=== PATIENT | male | born 1995 | race Caucasian/White ===

== ENCOUNTER 2018-02-05 09:24 | Day surgery (SDC) | payer OTHER ==
[2018-02-05] MEDS ORDERED: MEPERIDINE 25 MG INJ IV (11:30)
[2018-02-05] MEDS ORDERED: PROCHLORPERAZINE 10 MG INJ IV (11:30)
[2018-02-05] MEDS ORDERED: HYDROmorphONE (0.2 MG/ML) 10ML SYG IV ×3 (11:30)
[2018-02-05] MEDS ORDERED: OXYCODONE/ACETAMINOPHEN (5/325) TAB PO (11:30)
[2018-02-05] MEDS ORDERED: DIPHENHYDRAMINE 50 MG INJ IV (11:30)
[2018-02-05] MEDS ORDERED: ONDANSETRON 4 MG INJ IV (11:30)
[2018-02-05] MEDS ORDERED: FENTAnyl 50 MCG/ML VIAL IV ×3 (11:30)
[2018-02-05] MEDS ORDERED: MIDAZOLAM 1 MG/ML 2 ML INJ (11:43)
[2018-02-05] MEDS ORDERED: FENTAnyl 50 MCG/ML VIAL ×2 (11:43→12:42)
[2018-02-05] MEDS: LIDOCAINE 1%/EPI 30 ML INJ (11:50)
[2018-02-05] MEDS: COCAINE 4% 4 ML TOP (11:50)
[2018-02-05] MEDS: NEOMYC/POLYMYX/BACIT 30 GM OINT (11:50)
[2018-02-05] MEDS ORDERED: PROPOFOL 40 ML (11:56)
[2018-02-05] MEDS ORDERED: LIDOCAINE 2% (SDV) 5 ML INJ (11:56)
[2018-02-05] MEDS ORDERED: ONDANSETRON 4 MG INJ (11:57)
[2018-02-05] MEDS ORDERED: FAMOTIDINE 20 MG INJ (11:57)
[2018-02-05] MEDS ORDERED: DEXAMETHASONE 4 MG/ML 1 ML INJ (11:57)
[2018-02-05] MEDS ORDERED: SUCCINYLCHOLINE CHLORIDE 100 MG/5 ML SYG IV (11:58)
[2018-02-05] MEDS: HYDROCODONE/APAP (7.5/325) TAB PO (15:55)
== END 2018-02-05 16:25 | disposition home or self-care (01) ==
LOC: SDS 09:24
DX: J34.2 Deviated nasal septum (principal)
CPT/HCPCS: 30520; 88300